=== PATIENT | male | born 1955 | race Caucasian/White ===

== ENCOUNTER 2020-05-02 19:16 | Emergency (ER) | payer MEDICARE, SELFPAY ==
--- NOTE | ~2020-05-02 | CT_ITS ---
EXAMINATION: CT brain wo con INDICATION: Dizziness COMPARISON: None TECHNIQUE: Standard unenhanced head CT. The dose-length product (DLP) was 681.00 mGy-cm. The mA was a djusted according to patient size. Iterative reconstruction technique was employed. FINDINGS: There is no intracranial hemorrhage, acute infarction, or abnormal mass lesion. The ventric les are normal. There is no abnormal mass effect or midline shift. The ernandez-white matter differentiat ion is normal. The basal cisterns are patent. The orbits are normal. There is mild mucosal thickening of the paranasal sinuses. IMPRESSION: 1. No acute intracranial abnormality. Reviewed, dictated and finalized at location A.
[2020-05-02 19:18] VITALS: BP 153/96; PULSE 70; RESP 15; TEMP 36.4; O2SAT 100
[2020-05-02] MEDS: ONDANSETRON INJ 4 MG/2 ML VIAL (19:29)
--- NOTE | 2020-05-02 19:32 | ECG_ITS ---
Measurements Intervals [place] Rate: 70 P: 28 WA: 163 QRS: 56 QRSD: 100 T: 52 QT: 394 QTc: 425 Interpretive Statements SINUS RHYTHM ST ELEVATION IN ANTEROLAT/INF LEADS- PROBABLY EARLY REPOLARIZATION MINIMAL Q WAVES- INF/LAT LEADS BASELINE ARTIFACT- I, III, AVL BORDERLINE ECG Electronically Signed On 05-03-2020 6:57:08 CDT by Shahab Estrada D.O.
--- NOTE | 2020-05-02 19:34 | ED.DIZZY ---
HPI - Dizziness General Chief Complaint: Dizziness Stated Complaint: stemi Time Seen by Provider: 05/02/20 19:25 Source: patient History of Present Illness HPI Narrative: Pt c/o dizziness while working out in the yard, started approx 1 hour [employer] prevention [employer], now almost resolved. Pt denies headache, weakness, numbness, speech or visual disturbance, cp, sob, abd pain or vomiting but admits to nausea. Related Data Home Medications Medication Instructions Recorded Confirmed No Home Medications 05/02/20 05/02/20 Allergies Allergy/AdvReac Type Severity Reaction Status Date / Time No Known Allergies Allergy Verified 05/02/20 19:29 Review of Systems Review of Systems: All systems reviewed & are unremarkable except as noted in HPI and below Constitutional: Constitutional: Denies body ache(s), Denies chills, Denies excessive sweating, Denies fatigue, Denies fever(s), Denies headache(s), Denies lethargy, Denies malaise, Denies weakness and Denies weight loss Eyes: Eyes: Denies blurry vision, Denies change in vision and Denies loss of vision ENT: Denies dizziness, Denies ear discharge, Denies headache(s), Denies lip swelling, Denies epistaxis, Denies nasal congestion, Denies neck pain, Denies throat swelling and Denies tongue swelling Cardiovascular: Cardiovascular: Denies chest pain, Denies chest pain at rest, Denies chest pain with activity, Denies diaphoresis, Denies rapid heart rate, Denies edema, Denies irregular heart rhythm, Denies lightheadedness, Denies palpitations, Denies dyspnea and Denies dyspnea on exertion Respiratory: Respiratory: Denies chest congestion, Denies cough, Denies hemoptysis, Denies dyspnea and Denies dyspnea on exertion Gastrointestinal: Gastrointestinal: Denies abdominal pain, Denies melena, Denies hematochezia, Denies diarrhea, Denies nausea, Denies vomiting and Denies hematemesis Musculoskeletal: Musculoskeletal: Denies abnormal gait, Denies deformity, Denies joint swelling, Denies limited range of motion, Denies neck pain and Denies numbness Neurologic: Denies Abnormal speech present, Denies abnormal gait, Denies confusion, Denies headache(s), Denies focal weakness, Denies loss of vision, Denies numbness, Denies Other visual disturbances, Denies Sensory deficit (Neuro) and Denies weakness Psychiatric: Psychiatric: Denies confusion, Denies depression, Denies auditory hallucinations, Denies homicidal ideation and Denies suicidal ideation Endocrine: Endocrine: Denies cold intolerance, Denies excessive sweating, Denies fatigue, Denies heat intolerance and Denies palpitations Hematologic/Lymphatic: Hematologic/Lymphatic: Denies easy bleeding and Denies easy bruising Allergic/Immunologic: Allergic/Immunologic: Denies lip swelling, Denies throat swelling and Denies tongue swelling Exam Const: General: cooperative, healthy appearing, comfortable, no acute distress, well developed, alert and awake; No confusion Orientation/consciousness: oriented to person, oriented to place, oriented to time, patient oriented x3 and No confusion Limitations: no limitations HENMT: Head: normal to inspection, normocephalic and atraumatic Ears: hearing grossly normal bilaterally, TM normal on the right and TM normal on the left General nose exam: Normal external nose present, Normal nares present and No nasal discharge present Face and sinus: normal facial exam Mouth: Yes Normal oral and palatal mucosa present, Yes lip normal, Yes tongue normal and Yes oropharynx normal Throat: posterior oropharynx normal, tonsils normal and uvula midline Eyes: General: appearance normal, both eyes and all related structures Pupils: Equal, round and reactive pupils present EOM: EOMs intact bilaterally Neck: Neck: normal visual inspection, full ROM, no lymphadenopathy and no meningeal signs Chest: Chest palpation & inspection: normal inspection of the chest Resp: Effort & Inspection: normal respiratory effort, able to speak in complete sentences, no
[2020-05-02] MEDS: SODIUM CHLORIDE 0.9% IV 1,000 ML 999 ML IV CONT (19:36)
[2020-05-02 19:44] LABS: Basophils Percent Auto 0.5 % (0.2-1.2); Eosinophils Absolute Auto 0.3 K/mm3 (0-0.3); Eosinophils Percent Auto 3.4 % (0-4.4); Hematocrit 42.7 % (42.0-52.0); Hemoglobin 14.6 g/dL (14.0-18.0); Immature Granulocyte Absolute 0.02 K/mm3 (0.00-0.031); Immature Granulocyte Percent A 0.2 % (0-0.5); Lymphocytes Absolute Auto 2.47 K/mm3 (0.9-3.2); Lymphocytes Percent Auto 29.9 % (18.3-44.2); Mean Corpuscular HGB Conc 34.2 g/dl (32-36); Mean Corpuscular Hemoglobin 29.7 pg (26-34); Mean Platelet Volume 9.8 fl (7.4-10.4); Monocytes Absolute Auto 0.7 K/mm3 (0.1-0.6); Neutrophils Absolute Auto 4.8 K/mm3 (1.3-6.7); Platelet Count Result 248 k/mm3 (150-375); Red Blood Count 4.91 M/mm3 (4.6-6.20); Red Cell Distribution Width 12.4 % (11.5-14.5); White Blood Count 8.3 K/mm3 (4.5-10.0)
[2020-05-02 19:57] LABS: Creatine Kinase 67 U/L (55-170)
--- NOTE | 2020-05-02 20:06 | ECG_ITS ---
Measurements Intervals [place] Rate: 70 P: 17 TN: 160 QRS: 49 QRSD: 102 T: 43 QT: 386 QTc: 417 Interpretive Statements SINUS RHYTHM ST ELEVATION IN ANTEROLAT/INF LEADS- PROBABLY EARLY REPOLARIZATION BORDERLINE ECG Electronically Signed On 05-03-2020 6:55:24 CDT by Shahab Estrada D.O.
[2020-05-02 20:09] LABS: Alanine Aminotransferase 17 U/L (4-50); Albumin Level 4.2 g/dL (3.5-5.1); Alkaline Phosphatase 101 U/L (38-126); Anion Gap 7 mmol/L (8-16); Aspartate Amino Transferase 26 U/L (17-59); Bilirubin,Total 0.9 mg/dL (0.2-1.3); Blood Urea Nitrogen 27 mg/dL (9-20); Carbon Dioxide 26 mmol/L (22-30); Chloride 104 mmol/L (98-107); Estimated CRCL calculation 64 ml/min; Estimated Glomerular Filt Rate > 60; Glucose 107 mg/dL (75-110); Sodium 137 mmol/L (137-145)
[2020-05-02 20:12] LABS: Troponin I < 0.012 ng/mL (0.000-0.034)
[2020-05-02 21:22] LABS: Partial Thromboplastin Time 25.7 SECONDS (22.3-36.8)
[2020-05-02] MEDS: MECLIZINE HCL 25 MG TABLET PO (21:28)
[2020-05-02] MEDS: PROMETHAZINE HCL 25 MG/ML AMPUL 12.5 MG IV PUSH (21:28)
[2020-05-02 21:30] LABS: Prothrombin Time 13.3 Seconds (11.1-14.7)
[2020-05-02 22:16] VITALS: BP 124/81; PULSE 71; RESP 16; TEMP 36.8; O2SAT 100
== END 2020-05-02 22:17 | disposition home or self-care (01) ==
PROVIDERS: Emergency Provider Emergency Medicine
DX: R42 Dizziness and giddiness (principal); R11.0 Nausea; R94.31 Abnormal electrocardiogram [ECG] [EKG]
CPT/HCPCS: 36415; 70450; 80053; 82550; 84484; 85025; 85610; 85730; 93005; 96361; 96374; 96375; 99284; A9270; J2405; J2550; J7030

== ENCOUNTER 2024-01-29 20:43 | Emergency (ER) | payer MEDICARE, SELFPAY ==
[2024-01-29 20:49] VITALS: BP 123/75; PULSE 79; RESP 17; TEMP 36.5; O2SAT 99
--- NOTE | 2024-01-30 00:01 | ED.GENADULT ---
HPI - General Adult General Chief complaint: Unspecified Stated complaint: incision drain complications Time Seen by Provider: 01/29/24 23:53 History of Present Illness HPI narrative: Patient is 68-year-old gentleman who presents emergency department with chief complaint of decreased drainage from the MIKEY drain from a lipoma excision. The patient reports he had a lipoma removed on the the patient reports that he had the drain present and noticed that the ball would fill up with air today the patient reports that he has had decreased output from the drain the patient denies fever reports no pain Related Data Home Medications Medication Instructions Recorded Confirmed No Home Medications 05/02/20 05/02/20 Allergies Allergy/AdvReac Type Severity Reaction Status Date / Time No Known Allergies Allergy Verified 01/29/24 20:53 Review of Systems Review of Systems: A 10 system review of systems was completed on the patient and is negative except for what is stated in the HPI. Nursing and ancillary documentation was reviewed. Exam Narrative: GENERAL: Well-appearing, well-nourished, and in no acute distress. HEAD: Normocephalic, atraumatic. EYES: PERRLA and EOMI. ENT: Nares clear, no rhinorrhea or epistaxis. Mucous membranes moist. NECK: Supple. Incision site is well approximated no erythema no drainage CHEST: Clear to auscultation. No respiratory distress. HEART: Regular rate and rhythm. No murmur heard. Normal peripheral pulses. ABDOMEN: Soft, nontender, nondistended, normal active bowel sounds. Back: There is an incision in the midline of the back wound is well approximated there is no drainage from the wound there is no erythema the wound there is a MIKEY drain present. The MIKEY drain was stripped and the line is currently clear the air was expressed from the fall and replaced on suction EXTREMITIES: Normal range of motion. No edema. SKIN: Warm, dry, no rash. NEURO: No focal deficits. Alert and oriented x3. PSYCH: Normal mood and affect. Course Vital Signs Vital signs: Vital Signs Temperature 36.5 C 01/29/24 20:49 Pulse Rate 79 01/29/24 20:49 Respiratory Rate 17 01/29/24 20:49 Blood Pressure 123/75 01/29/24 20:49 Pulse Oximetry 99 01/29/24 20:49 Oxygen Delivery Room Air 01/29/24 20:49 Temperature 36.5 C 01/29/24 20:49 Pulse Rate 79 01/29/24 20:49 Respiratory Rate 17 01/29/24 20:49 Blood Pressure 123/75 01/29/24 20:49 Pulse Oximetry 99 01/29/24 20:49 Oxygen Delivery Room Air 01/29/24 20:49 Medical Decision Making MDM Narrative Medical decision making narrative: Differential diagnosis includes drain malfunction, wound infection, The wound was inspected and there was no signs of dehiscence no erythema the MIKEY drain is still intact and is holding suction at this time. The case was discussed with surgery on-call at [place] and the patient should call the office on Thursday to schedule an appointment Vital Signs Vital Signs: Vital Signs Temperature 36.5 C 01/29/24 20:49 Pulse Rate 79 01/29/24 20:49 Respiratory Rate 17 01/29/24 20:49 Blood Pressure 123/75 01/29/24 20:49 Pulse Oximetry 99 01/29/24 20:49 Oxygen Delivery Room Air 01/29/24 20:49 Temperature 36.5 C 01/29/24 20:49 Pulse Rate 79 01/29/24 20:49 Respiratory Rate 17 01/29/24 20:49 Blood Pressure 123/75 01/29/24 20:49 Pulse Oximetry 99 01/29/24 20:49 Oxygen Delivery Room Air 01/29/24 20:49 Discharge Plan Discharge Clinical Impression: Visit for wound check Patient Disposition: Home, Self-Care Condition: Stable Instructions: Antibiotic Form, Acute Wounds (ED) Additional Instructions: Please call your surgeon's office on Thursday [phone] they will want to see you in the office this week preferably Thursday or Thursday Prescriptions: No Action No Home Medications Follow-up/Referrals: PHYSIC
[2024-01-30 00:52] VITALS: BP 120/76; PULSE 68; RESP 16; O2SAT 98
== END 2024-01-30 00:53 | disposition home or self-care (01) ==
PROVIDERS: Emergency Provider Emergency Medicine
DX: Z48.03 Encounter for change or removal of drains (principal); Z98.890 Other specified postprocedural states
CPT/HCPCS: 99282